=== PATIENT | male | born 1995 | race Two or more races ===

== ENCOUNTER 2020-06-26 13:03 | Outpatient (CLI) | payer OTHER | END 2020-06-26 13:04 | disposition EMS.NT | LOC: EMS 13:03 | PROVIDERS: ATTEND Surgery | DX: Z04.1 Encounter for examination and observation following transport accident (principal) ==

== ENCOUNTER 2020-07-29 18:06 | Outpatient (CLI) | payer OTHER | END 2020-07-29 18:07 | disposition critical access hospital (66) | LOC: EMS 18:06 | PROVIDERS: ATTEND Surgery | DX: R06.00 Dyspnea, unspecified (principal); R20.0 Anesthesia of skin | CPT/HCPCS: A0425; A0429 ==

== ENCOUNTER 2020-07-29 18:42 | Emergency (ER) | payer OTHER ==
[2020-07-29] MEDS ORDERED: LIDOCAINE VISCOUS 2% 15 ML UDC MM STA (19:50)
[2020-07-29] MEDS ORDERED: MAG HYDROX/AL HYDROX/SIMETH 30 ML UDC PO STA (19:50)
[2020-07-29] MEDS ORDERED: LORazepam 1 MG TABLET PO STA (19:50)
[2020-07-29] MEDS ORDERED: SUCRALFATE 1 GM/10 ML UDC PO STA (19:50)
[2020-07-29 20:14] LABS: BASOPHILS % (AUTO) 0.2 %; EOSINOPHILS % (AUTO) 0.1 %; HGB - HEMOGLOBIN 16.2 g/dL (14.0-18.0); LYMPHOCYTES # (AUTO) 1.4 10^3/uL (1.5-3.5); LYMPHOCYTES % (AUTO) 10.9 %; MEAN CORPUSCULAR HEMOGLOBIN 30.1 pg (27.0-31.0); MEAN CORPUSCULAR HGB CONC 34.7 g/dL (32.0-36.0); MEAN CORPUSCULAR VOLUME 86.8 fL (80.0-94.0); MEAN PLATELET VOLUME 11.7 fL (7.4-11.4); MONOCYTES # (AUTO) 0.7 10^3/uL (0.0-1.0); MONOCYTES % (AUTO) 5.7 %; NEUTROPHILS # (AUTO) 10.4 10^3/uL (1.5-6.6); NEUTROPHILS % (AUTO) 82.6 %; PLT - PLATELET COUNT 189 10^3/uL (130-450); RED BLOOD COUNT 5.38 10^6/uL (4.70-6.10); WHITE BLOOD COUNT 12.6 x10^3/uL (4.8-10.8)
[2020-07-29 20:27] LABS: ALBUMIN 4.4 g/dL (3.2-5.5); ALBUMIN/GLOBULIN RATIO 1.3 (1.0-2.2); BILIRUBIN,TOTAL 0.6 mg/dL (0.2-1.0); CALCIUM 9.6 mg/dL (8.5-10.3); TOTAL PROTEIN 7.9 g/dL (6.7-8.2)
--- NOTE | 2020-07-29 21:07 | ED Physician Documentation ---
History of Present Illness - Stated complaint Stated Complaint: anxiety - Chief complaint Chief Complaint: MHE - History obtained from History obtained from: Patient - History of Present Illness Timing: Today Pain level max: 0 Pain level now: 0 - Additonal information Additional information: 24-year-old male presents the emergency department with epigastric pain and anxiety today. He states he has a history of PTSD and has panic attacks. He usually takes Valium for anxiety. He states that he was drinking alcohol last night and has discomfort in his epigastrium today. No vomiting. No diarrhea. No constipation. Worse with palpation, worse with eating. Nothing makes it better. Review of Systems Constitutional: denies: Fever, Chills Respiratory: denies: Cough GI: denies: Vomiting, Diarrhea Skin: denies: Rash PD PAST MEDICAL HISTORY - Past Medical History Past Medical History: Yes Psych: Panic attacks, Post traumatic stress disorder Other Past Medical History: ingrown toe - Present Medications Home Medications: Ambulatory Orders Medication Instructions Recorded Confirmed Famotidine [Pepcid] 20 mg PO BID #30 tablet 07/29/20 - Living Situation Living Situation: reports: With family Living Arrangement: reports: At home - Social History Does the pt smoke?: No Smoking Status: Never smoker Does the pt drink ETOH?: Yes ETOH Use: Liquor Does the pt have substance abuse?: No PD ED PE NORMAL - Vitals Vital signs reviewed: Yes - General General: Alert and oriented X 3, Well developed/nourished, Other (Appears very anxious) - HEENT HEENT: PERRL, Moist mucous membranes, Pharynx benign - Neck Neck: Supple, no meningeal sign - Cardiac Cardiac: Strong equal pulses, Other (Tachycardic) - Respiratory Respiratory: No respiratory distress, Clear bilaterally - Abdomen Abdomen: Soft, Other (Tender palpation epigastric. No peritoneal signs) - Derm Derm: Warm and dry - Extremities Extremities: No edema, No calf tenderness / cord - Neuro Neuro: Alert and oriented X 3 - Psych Psych: Other (Anxious) Results - Vitals Vitals: Vital Signs - 24 hr 07/29/20 07/29/20 07/29/20 18:42 19:25 21:12 Temperature 37.7 C 36.7 C Heart Rate 110 H 104 H 110 H Respiratory 26 H 22 20 Rate Blood Pressure 142/94 H 124/72 127/68 O2 Saturation 100 96 100 07/29/20 21:23 Temperature Heart Rate 98 Respiratory Rate Blood Pressure O2 Saturation Oxygen O2 Source Room air - Labs Labs: Laboratory Tests 07/29/20 07/29/20 20:00 20:00 WBC 12.6 H RBC 5.38 Hgb 16.2 Hct 46.7 MCV 86.8 MCH 30.1 MCHC 34.7 RDW 12.0 Plt Count 189 MPV 11.7 H Neut # (Auto) 10.4 H Lymph # (Auto) 1.4 L [place] # (Auto) 0.7 Eos # (Auto) 0.0 Baso # (Auto) 0.0 Absolute Nucleated RBC 0.00 Nucleated RBC % 0.0 Sodium 139 Potassium 4.2 Chloride 101 Carbon Dioxide 27 Anion Gap 11.0 BUN 11 Creatinine 1.0 Estimated GFR (MDRD) 93 Glucose 129 H Calcium 9.6 Total Bilirubin 0.6 AST 35 ALT 90 H Alkaline Phosphatase 77 Total Protein 7.9 Albumin 4.4 Globulin 3.5 Albumin/Globulin Ratio 1.3 Lipase 29 PD MEDICAL DECISION MAKING - ED course Complexity details: reviewed results, re-evaluated patient, considered differential, d/w patient ED course: 24-year-old male with what appears to be gastritis and a panic attack. Feels much better after Ativan and a GI cocktail. Abdominal pain resolved. Anxiety resolved. Patient feels much better and will follow up with his doctor for further care. Patient counseled regarding signs and symptoms for which I believe and urgent re-evaluation would be necessary. Patient with good understanding of and agreement to plan and is comfortable going home at this time This document was made in part using voice recognition software. While efforts are made to proofread this document, sound alike and grammatical errors may occur. Departure - Departure Disposition: 01 Home, Self Care Clinical Impression: Anxiety Gastritis Qualifiers: Gastritis type: unspecified gastritis Chronicity: acute Gastritis bleeding: without bleeding Qualified Code(s): K29.00 - Acute gastritis without bleeding Condition: Good Instructions: ED Gastritis, ED Panic Attack Follow-Up: your,doctor in 1 week [Other] Prescriptions: Famotidine [Pepcid] 20 mg PO BID #30 tablet Comments: Return if you worsen. Avoid alcohol. Follow-up with your doctor for further care. You are not to drive tonight. Discharge Date/Time: 07/29/20 21:25
[2020-07-29 21:14] VITALS: BP 127/68
== END 2020-07-29 21:25 | disposition home or self-care (01) ==
LOC: ED 18:42
DX: K29.00 Acute gastritis without bleeding (principal); F41.0 Panic disorder [episodic paroxysmal anxiety]; F43.10 Post-traumatic stress disorder, unspecified
CPT/HCPCS: 36415; 80053; 83690; 85025; 99283; 99284; A9270; J8499

== ENCOUNTER 2020-08-01 08:58 | Outpatient (CLI) | payer OTHER ==
[2020-08-01 09:49] VITALS: BP 110/72
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
== END 2020-08-01 08:59 | disposition home or self-care (01) ==
LOC: SC 08:58
PROVIDERS: ATTEND Nurse Practitioner Family
DX: R06.83 Snoring (principal); R06.81 Apnea, not elsewhere classified; R51.9 Headache, unspecified; G47.8 Other sleep disorders; R41.89 Other symptoms and signs involving cognitive functions and awareness; G47.10 Hypersomnia, unspecified; E66.9 Obesity, unspecified; Z68.32 Body mass index [BMI] 32.0-32.9, adult
CPT/HCPCS: 99203; 99212

== ENCOUNTER 2020-08-13 08:19 | Outpatient (CLI) | payer OTHER | END 2020-08-13 08:20 | disposition home or self-care (01) | LOC: SC 08:19 | PROVIDERS: ATTEND Nurse Practitioner Family | DX: R06.83 Snoring (principal); R53.83 Other fatigue; G47.10 Hypersomnia, unspecified; R06.81 Apnea, not elsewhere classified | CPT/HCPCS: 95806 ==

== ENCOUNTER 2020-08-23 15:14 | Outpatient (CLI) | payer OTHER ==
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
== END 2020-08-23 15:15 | disposition home or self-care (01) ==
LOC: SC 15:14
PROVIDERS: ATTEND Nurse Practitioner Family
DX: R06.83 Snoring (principal); G47.8 Other sleep disorders; R53.83 Other fatigue; F43.10 Post-traumatic stress disorder, unspecified; E66.9 Obesity, unspecified; Z68.32 Body mass index [BMI] 32.0-32.9, adult

== ENCOUNTER 2021-05-29 18:27 | Outpatient (CLI) | payer SELFPAY | END 2021-05-29 18:28 | disposition EMS.NT | LOC: EMS 18:27 | DX: Z04.1 Encounter for examination and observation following transport accident (principal) ==